=== PATIENT | female | born 2000 | race Caucasian/White ===

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

== ENCOUNTER 2019-02-09 13:18 | Outpatient (CLI) | payer OTHER ==
[2019-02-09 19:09] LABS: THYROID STIMULATING HORMONE 1.4 uIU/mL (0.34-5.60)
[2019-02-09 19:11] LABS: FREE T4 (FREE THYROXINE) 0.82 ng/dL (0.58-1.64)
== END 2019-02-09 13:19 | disposition home or self-care (01) ==
LOC: LAB.S 13:18
PROVIDERS: ATTEND Naturopath
DX: F41.9 Anxiety disorder, unspecified (principal); R00.0 Tachycardia, unspecified; R25.1 Tremor, unspecified
CPT/HCPCS: 36415; 81599; 82947; 83525; 84439; 84443; 84445; 84481; 86376; 86800

== ENCOUNTER 2019-10-02 09:30 | Outpatient (CLI) | payer OTHER | END 2019-10-02 23:59 | disposition home or self-care (01) | LOC: COV 09:30 | PROVIDERS: ATTEND Family Medicine | DX: J20.9 Acute bronchitis, unspecified (principal); R09.81 Nasal congestion; Z20.828 Contact with and (suspected) exposure to other viral communicable diseases ==

== ENCOUNTER 2019-10-13 20:43 | Emergency (ER) | payer OTHER ==
--- NOTE | 2019-10-13 21:37 | ED Physician Documentation ---
PD HPI ABD PAIN - Stated complaint Stated Complaint: BLOOD IN STOOL - Chief complaint Chief Complaint: Abd Pain - History obtained from History obtained from: Patient - History of Present Illness Timing - onset: Today Timing - details: Abrupt onset Pain level now: 4 Quality: Cramping Location: Other (across lower abdomen) Improved by: Other (no ameliorating factors) Worsened by: Other (no exacerbating factors) Associated symptoms: Diarrhea, Constipation, Hematochezia. No: Fever, Nausea, Vomiting Similar symptoms before: No diagnosis Recently seen: Not recently seen - Additional information Additional information: patient describes h/o episodic abdominal cramping associated with sudden urge to defecate and loose stools (this is ongoing issue). Today, she felt lower abdominal cramping with urge to defecate but little output (small amt. stool). She took a correctal and subsequently had few episodes of watery stool with BRBPR; this occurred this evening. Review of Systems Constitutional: denies: Fever, Chills, Sweats GI: reports: Abdominal Pain (resolved), Diarrhea, Bloody / black stool. denies: Abdominal Swelling, Nausea, Vomiting : denies: Dysuria, Frequency PD PAST MEDICAL HISTORY - Past Medical History Past Medical History: No Derm: Psoriasis - Past Surgical History Past Surgical History: No - Allergies Allergies/Adverse Reactions: Allergies Allergy/AdvReac Type Severity Reaction Status Date / Time Penicillins AdvReac Nausea Verified 02/22/17 13:15 - Social History Does the pt smoke?: Yes Smoking Status: Current some day smoker Does the pt drink ETOH?: Yes Does the pt have substance abuse?: No - Immunizations Immunizations are current?: Yes - POLST Patient has POLST: No PD ED PE NORMAL - Vitals Vital signs reviewed: Yes - General General: Alert and oriented X 3, No acute distress, Well developed/nourished - HEENT HEENT: Moist mucous membranes - Cardiac Cardiac: RRR, No murmur - Respiratory Respiratory: No respiratory distress, Clear bilaterally - Abdomen Abdomen: Normal bowel sounds, Soft, Non tender, Non distended, No organomegaly - Back Back: No CVA TTP - Derm Derm: Normal color, Warm and dry PD ED PE EXPANDED - Rectal Rectal: Normal Tone, [employer] Supervisor present. No: Mass, Hemorrhoid, Fissure Results - Vitals Vitals: Vital Signs - 24 hr 10/13/19 10/13/19 10/13/19 20:51 21:59 23:02 Temperature 36.6 C Heart Rate 90 97 71 Respiratory 22 18 Rate Blood Pressure 142/91 H 124/81 H 129/80 O2 Saturation 99 100 100 10/13/19 23:56 Temperature Heart Rate 73 Respiratory 16 Rate Blood Pressure 128/73 O2 Saturation 100 Oxygen O2 Source Room air - Labs Labs: Microbiology 10/13/19 23:55 Occult Blood - Final Stool Laboratory Tests 10/13/19 10/13/19 10/13/19 21:38 21:59 21:59 WBC 11.9 H RBC 4.10 L Hgb 13.1 Hct 38.4 MCV 93.7 MCH 32.0 H MCHC 34.1 RDW 12.2 Plt Count 305 MPV 9.4 Neut # (Auto) 8.8 H Lymph # (Auto) 1.9 [place] # (Auto) 1.1 H Eos # (Auto) 0.1 Baso # (Auto) 0.0 Absolute Nucleated RBC 0.00 Nucleated RBC % 0.0 Sodium 136 Potassium 3.6 Chloride 103 Carbon Dioxide 24 Anion Gap 9.0 BUN 14 Creatinine 0.7 Estimated GFR (MDRD) 107 Glucose 99 Calcium 9.1 Total Bilirubin 0.5 AST 18 ALT 13 Alkaline Phosphatase 59 Total Protein 7.4 Albumin 3.8 Globulin 3.6 Albumin/Globulin Ratio 1.1 Lipase 25 Urine Color STRAW Urine Clarity HAZY Urine pH 5.5 Ur Specific [place] <=1.005 Urine Protein NEGATIVE Urine Glucose (UA) NEGATIVE Urine Ketones NEGATIVE Urine Occult Blood SMALL H Urine Nitrite NEGATIVE Urine Bilirubin NEGATIVE Urine Urobilinogen 0.2 (NORMAL) Ur Leukocyte Esterase TRACE H Urine RBC 0-5 Urine WBC 6-10 H Ur Squamous Epith Cells FEW Squamous Urine Bacteria Few Ur Microscopic Review INDICATED Urine Culture Comments INDICATED Urine HCG, Qual NEGATIVE PD MEDICAL DECISION MAKING - ED course Complexity details: reviewed results, re-evaluated patient, considered differential, d/w patient, d/w family Departure - Departure Disposition: 01 Home, Self Care Clinical Impression: Hematochezia Condition: Good Instructions: ED Hematochezia Stable Follow-Up: Amara Lee ARNP [Primary Care Provider] - Discharge Date/Time: 10/14/19 00:10
[2019-10-13] MEDS ORDERED: SODIUM CHLORIDE 0.9% 1,000 ML IV STA (21:38)
[2019-10-13 21:51] LABS: BILIRUBIN,URINE NEGATIVE (NEGATIVE); GLUCOSE, URINE (UA) NEGATIVE (NEGATIVE); KETONES,URINE (UA) NEGATIVE (NEGATIVE); LEUKOCYTE ESTERASE, URINE TRACE (NEGATIVE); NITRITE,URINE NEGATIVE (NEGATIVE); OCCULT BLOOD,URINE SMALL (NEGATIVE); PH,URINE 5.5 PH (5.0-7.5); PROTEIN,URINE NEGATIVE (NEGATIVE); UROBILINOGEN,URINE 0.2 (NORMAL) E.U./dL (NORMAL)
[2019-10-13 21:55] LABS: CLARITY,URINE HAZY (CLEAR); HCG UR QUAL NEGATIVE
[2019-10-13 22:03] LABS: BACTERIA,URINE Few /HPF (None Seen); RBC,URINE 0-5 /HPF (0-5); SQUAMOUS EPITHELIAL CELL,UR FEW Squamous (<= Few)
[2019-10-13 22:12] LABS: BASOPHILS % (AUTO) 0.3 %; EOSINOPHILS # (AUTO) 0.1 10^3/uL (0.0-0.7); EOSINOPHILS % (AUTO) 0.8 %; HGB - HEMOGLOBIN 13.1 g/dL (12.0-16.0); LYMPHOCYTES # (AUTO) 1.9 10^3/uL (1.5-3.5); LYMPHOCYTES % (AUTO) 15.5 %; MEAN CORPUSCULAR HGB CONC 34.1 g/dL (32.0-36.0); MEAN CORPUSCULAR VOLUME 93.7 fL (81.0-99.0); MEAN PLATELET VOLUME 9.4 fL (7.9-10.8); MONOCYTES # (AUTO) 1.1 10^3/uL (0.0-1.0); MONOCYTES % (AUTO) 9.2 %; NEUTROPHILS # (AUTO) 8.8 10^3/uL (1.5-6.6); NEUTROPHILS % (AUTO) 73.8 %; PLT - PLATELET COUNT 305 10^3/uL (130-450); RED CELL DISTRIBUTION WIDTH 12.2 % (12.0-15.0); WHITE BLOOD COUNT 11.9 x10^3/uL (4.8-10.8)
[2019-10-13 22:24] LABS: ALBUMIN 3.8 g/dL (3.2-5.5); ALBUMIN/GLOBULIN RATIO 1.1 (1.0-2.2); BILIRUBIN,TOTAL 0.5 mg/dL (0.2-1.0); CALCIUM 9.1 mg/dL (8.5-10.3); CREATININE 0.7 mg/dL (0.4-1.0); TOTAL PROTEIN 7.4 g/dL (6.7-8.2)
[2019-10-13 23:57] VITALS: BP 128/73
[2019-10-13] MEDS ORDERED: ACETAMINOPHEN 160 MG/5 ML SUSP UDC PO STA (23:57)
== END 2019-10-14 00:10 | disposition home or self-care (01) ==
LOC: ED 20:43
DX: K92.1 Melena (principal); R10.30 Lower abdominal pain, unspecified; F17.200 Nicotine dependence, unspecified, uncomplicated
CPT/HCPCS: 36415; 80053; 81001; 81025; 82272; 83690; 85025; 87086; 99283; 99284; A9270; 81003; 81599; 87045; 87046

== ENCOUNTER 2019-11-27 10:47 | Outpatient (CLI) | payer OTHER ==
--- NOTE | 2019-11-27 11:24 | SLEEP CARE CONSULTATION ---
Information from patient questionnaire entered by Crissy Novak. I have reviewed and concur with the information entered by Crissy Novak. This document represents the service I personally performed and the decisions made by me, Jenna Gonzalez MD, [facility]. History of Present Illness Service Date and Time: 11/27/2019 1047 Reason for Visit: New patient Chief Complaint: reports: Insomnia, Unrefreshed sleep, Snoring, Excessive daytime sleepiness, Observed pauses in breathing, Fatigue, Frequent awakenings at night Date of Onset: 3 years Usual bedtime: 2230 (depends) Time it takes to fall asleep: 30 minutes Snores at night: Yes (sometimes) Observed to quit breathing while asleep: Yes Sleeps alone due to snoring: No Number of times waking at night: 0-2 Reasons for waking at night: reports: Bathroom, Other (uncomfortable, odd breathing) Toss, Turn, or Twitch while sleeping: Yes Recalls having dreams: Yes Usually gets out of bed at: 0730 workday, 1045 days off (depends) Feels refreshed in the morning: No Morning headache: No Sleepy or fatigued during the day: Yes Ever fallen asleep while driving: No Takes day naps: No Dreams during day naps: Yes Prior sleep studies: No Additional HPI information: I had the pleasure of seeing Ms. Martin today regarding the possibility of her having a sleep disorder. As you know, she is a 19 year old lady who complains of loud snore, witnessed apnea, unrefreshed sleep, and excessive daytime sleepiness. Her mother has obstructive sleep apnea-hypopnea and uses a CPAP. 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 Patient is Single and lives in [place]. Have you smoked in the past 12 months: No Cigarettes per day (20/pack): 2 (a few) Years of smokin Quit date: 2017 Smoking Pack Years: 0.2 Alcohol use: Yes Alcohol amount and frequency: hard to say how much, once a week Caffeine use: Yes Caffeine amount and frequency: only tea (on occasion) Family History Family history of sleep disordered breathing: Yes Family Hx Sleep Apnea: Mother: Sleep apnea - Treated Allergies and Home Medications Drug allergies reviewed: Yes (penicillins) Home medication list reviewed: Yes ( control patch) Review of Systems Weight gain over past 5 years: 10 Cardiovascular: reports: other (hyperglycemic) Respiratory: reports: other (odd breathing) Gastrointestinal: reports: diarrhea, abdominal pain Neurological: reports: headaches Psychiatric: reports: anxiety, claustrophobia Ear/Nose/Throat: reports: nasal congestion, sinus problems, dry mouth/throat, wisdom teeth removed Endocrine: reports: thyroid disease (possible), sluggishness, too hot or cold Musculoskeletal: reports: joint pain, back pain, muscle pain or cramping, mobility problems (during periods) Immunologic: reports: rash (possibly to alcohol (tequila)), allergies to food or environment (*food) Physical Exam Vital signs obtained and entered by: To minimize the risk of COVID-19 exposure, detailed exam was not performed. Height: 5 ft 7 in Weight: 170 lb Body Mass Index: 26.6 BMI Classification: Overweight Impression and Plan IMPRESSION: 1. Obstructive Sleep Apnea-Hypopnea Syndrome, as suggested by history of loud and irregular snoring, observed cessation of breath while asleep, unrefreshed sleep, and daytime hypersomnolence. Narrow oropharynx and obesity are common predisposing factors for obstructive sleep apnea-hypopnea syndrome. Pathophysiology of sleep-disordered breathing was discussed. I recommend proceeding to polysomnography to confirm the diagnosis and to assess severity. If she has significant sleep disordered breathing, a manual CPAP titration study will also be performed to find the optimal treatment pressure. I informed the patient of what the sleep studies involve and after some discussion, she preferred to have a home sleep apnea test (HSAT). Plan: 1. Schedule a home sleep apnea test (HSAT) 2. Avoid long distance driving or when feeling sleepy. 3. Avoid alcohol, sedative and muscle relaxant around bedtime. 4. Attempt to lose weight. 5. Return in 1 to 2 weeks after the study to discuss results and initiate therapy Visit Type: In Office Location of Provider: Office Time Spent with Patient (minutes): 15 Provider Statement: I spent 100% of the Face to Face Visit with the patient with greater than 50% spent counseling the patient and coordination of care.
== END 2019-11-27 10:48 | disposition home or self-care (01) ==
LOC: SC 10:47
PROVIDERS: ATTEND Internal Medicine Pulmonary Disease
DX: G47.8 Other sleep disorders (principal); R06.83 Snoring; R06.81 Apnea, not elsewhere classified; G47.10 Hypersomnia, unspecified; E66.3 Overweight; Z68.26 Body mass index [BMI] 26.0-26.9, adult
CPT/HCPCS: 99203; 99212

== ENCOUNTER → 2019-12-27 | Outpatient (CLI) | payer OTHER | LOC: SC 19:30 | PROVIDERS: ATTEND Internal Medicine Pulmonary Disease | DX: R09.02 Hypoxemia (principal); G47.10 Hypersomnia, unspecified; R06.83 Snoring; G47.8 Other sleep disorders; R06.81 Apnea, not elsewhere classified; E66.3 Overweight; Z68.26 Body mass index [BMI] 26.0-26.9, adult | CPT/HCPCS: 95806 ==

== ENCOUNTER 2020-01-08 17:37 | Outpatient (CLI) | payer OTHER ==
--- NOTE | 2020-01-08 13:59 | SLEEP CARE CONSULTATION ---
Information from patient questionnaire entered by Crissy Novak. I have reviewed and concur with the information entered by Crissy Novak. This document represents the service I personally performed and the decisions made by , Kaycee Luna ARNP. History of Present Illness Service Date and Time: 01/08/2020 1340 Initial [place] Sleepiness Scale score: 12 Current [place] Sleepiness Scale score: 13 Additional HPI information: HENRI MACDONALD returns for a Telehealth follow up for results of the recently performed home sleep study. The patient was informed of the following findings: The patient had no significant sleep disordered breathing with an average AHI of 3.0 and a briseyda oxygen saturation of 79%. I explained the pathophysiology behind obstructive sleep apnea. Patient does not have sleep apnea and was advised how weight gain could increase the risk of developing sleep apnea in the future. Patient has moderate snoring. Snoring can be reduced by weight loss. Weight loss is best achieved with diet consult. Patient instructed to contact PCP for referral. Snoring can also be treated with an oral appliance from a dentist. Advised to check insurance coverage. In addition, an ENT evaluation can be do to see if other treatment is indicated. Patient counseled not drink alcohol less than 4 hours before bedtime as it can increase snoring and apnea. Patient was cautioned about risks of drowsy driving until sleepiness symptoms resolve. Patient denies drowsy driving. Sleep Study - Results Type of Sleep Study: Home sleep study Prior sleep studies: Yes (12/2019 [facility]) Polysomnography/Home Sleep Study results: Physician Impression: The quality of the study is good. The length of the study is adequate (> 240 minutes). Please also see the tabulated and graphic data. 1. No significant sleep-disordered breathing, with an AHI of 3.0/hr and briseyda SaO2 of 79%. During the study, the patient had 10 apneas (10 obstructive, 0 central, 0 mixed) and 10 hypopneas. The longest episode lasted 51.5 seconds. The patient slept mostly supine (supine AHI was 3.4 and non-supine, 0.00). 2. Hypoxemia (ICD-10 R09.02), moderate, with the lowest oxygen saturation of 79 % and 4.7 minutes with SaO2 under 90%. Baseline oxygen saturation was normal (Average oxygen saturation was 96%). Recommendation: No treatment is necessary. However, if there is a strong suspicion for sleep- disordered breathing, an in-laboratory polysomnography should be considered. Allergies and Home Medications Drug allergies reviewed: Yes (penicillin) Home medication list reviewed: Yes (no changes) Review of Systems Review of systems same as previous: Yes (no changes) Physical Exam Vital signs obtained and entered by: Telehealth visit, no vital signs obtained Height: 5 ft 7 in Impression and Plan 1. Snoring but no significant sleep disordered breathing. Patient advised that often weight loss will reduce snoring as well as apnea risk. Patient counseled on ways to get better sleep and reduce sleepiness since her [place] scale is 13 today. First I counseled the patient on the importance of a regular sleep schedule, starting with the wake time. I explained the homestatic sleep drive and how maintaining a regular wake time will allow the patient to be tired enough to sleep 15-16 hours later. By waking at the same time, the patient will also feel more alert. Most caffeine is to be stopped after lunch as it has a 6 hour half life and reduce sleep latency and efficiency. Nicotine and alcohol can also reduce sleep efficiency and should be avoided about 4 hours prior to going to bed. She voiced understanding and will follow up as needed. * Attempt to lose weight * Avoid alcohol consumption near bedtime * The patient is cautioned about driving until sleepiness is completely resolved. * Return as needed if symptoms do not improve, worsen or change. Counseling Topics: Weight loss health impact Visit Type: Telehealth Video Video Type: Doximity Patient Location: Home Location of Provider: Home Patient agrees and consents to this telehealth visit type: Yes Patient agrees to have their insurance billed: Yes Time Spent with Patient (minutes): 17 Provider Statement: I spent 100% of the Telehealth Video Call with the patient with greater than 50% spent counseling the patient and coordination of care.
== END 2020-01-08 17:38 | disposition home or self-care (01) ==
LOC: SC 17:37
PROVIDERS: ATTEND Nurse Practitioner Family
DX: R06.83 Snoring (principal); R09.02 Hypoxemia

== ENCOUNTER 2020-01-15 08:00 | Outpatient (CLI) | payer OTHER ==
[2020-01-16 20:36] LABS: TRICHOMONAS VAGINALIS DNA NEGATIVE (NEGATIVE)
== END 2020-01-15 08:01 ==
LOC: LAB.R 08:00
PROVIDERS: ATTEND Nurse Practitioner Obstetrics & Gynecology
DX: Z11.3 Encounter for screening for infections with a predominantly sexual mode of transmission (principal)
CPT/HCPCS: 87491; 87591; 87661

== ENCOUNTER 2020-07-16 08:00 | Outpatient (CLI) | payer OTHER ==
--- NOTE | 2020-07-16 19:45 | XRAY Report ---
PROCEDURE: Shoulder 3 View RT INDICATIONS: PAIN IN RIGHT SHOULDER TECHNIQUE: 3 views of the shoulder were acquired. COMPARISON: None. FINDINGS: Bones: No fractures or dislocations. No suspicious bony lesions. Visualized ribs appear intact. Soft tissues: No suspicious soft tissue calcifications. IMPRESSION: No acute finding. Reviewed by: Carlton Espinoza MD on 07/16/2020 7:43 PM PDT Approved by: Carlton Espinoza MD on 07/16/2020 7:43 PM PDT Station ID: [id number]
--- NOTE | 2020-07-16 19:45 | XRAY Report ---
PROCEDURE: Wrist 3 View RT INDICATIONS: PAIN IN RIGHT WRIST TECHNIQUE: 3 views of the wrist were acquired. COMPARISON: None FINDINGS: Bones: No fractures or dislocations. No suspicious bony lesions. Soft tissues: No suspicious soft tissue calcifications. IMPRESSION: No acute finding. Reviewed by: Carlton Espinoza MD on 07/16/2020 7:44 PM PDT Approved by: Carlton Espinoza MD on 07/16/2020 7:44 PM PDT Station ID: [id number]
--- NOTE | 2020-07-16 19:46 | XRAY Report ---
PROCEDURE: Elbow 3 View RT INDICATIONS: PAIN IN RIGHT ELBOW TECHNIQUE: 3 views of the elbow were acquired. COMPARISON: None FINDINGS: Bones: No fractures or dislocations. No suspicious bony lesions. Soft tissues: No elbow joint effusion. No suspicious soft tissue calcifications. IMPRESSION: No acute finding. Reviewed by: Carlton Espinoza MD on 07/16/2020 7:44 PM PDT Approved by: Carlton Espinoza MD on 07/16/2020 7:44 PM PDT Station ID: [id number]
== END 2020-07-16 23:59 | disposition home or self-care (01) ==
LOC: DI.S 08:00
PROVIDERS: ATTEND Physician Assistant Medical
DX: M25.511 Pain in right shoulder (principal); M25.531 Pain in right wrist; M79.601 Pain in right arm

== ENCOUNTER 2020-12-16 13:36 | Outpatient (CLI) | payer OTHER ==
--- NOTE | 2020-12-17 09:35 | Ultrasound Report ---
ULTRASOUND OF RIGHT AXILLA: 12/16/2020 CLINICAL: Palpable right axilla lump. No prior exams were available for comparison. Color flow ultrasound of the right axilla was performed on the areas of interest. Dia scale images of the real-time examination were reviewed. No discrete cystic or solid mass lesion identified in the area of palpable abnormality. No suspicious enlarged lymph nodes. IMPRESSION: NEGATIVE There is no sonographic evidence of malignancy. There is no abnormality seen in the right axilla to correspond with the palpable abnormality and tend erness in the right axilla, however, clinical followup is recommended. This exam was interpreted at Station ID: [id number]. Electronically Signed By: Davis Lopez M.D. ddp/:12/16/2020 14:42:16 Ultrasound BI-RADS: 1 Negative BI-RADS CATEGORY: (1) - 1 Unspecified - other recall n/a LATERALITY: (B)
== END 2020-12-16 13:37 | disposition home or self-care (01) ==
LOC: DI 13:36
PROVIDERS: ATTEND Physician Assistant
DX: R22.2 Localized swelling, mass and lump, trunk (principal)

== ENCOUNTER 2022-01-19 08:00 | Outpatient (CLI) | payer BC | END 2022-01-19 23:59 | disposition home or self-care (01) | LOC: LAB.S 08:00 | PROVIDERS: ATTEND Physician Assistant | DX: J02.9 Acute pharyngitis, unspecified (principal) | CPT/HCPCS: 87070; 87077 ==